=== PATIENT | male | born 1990 | race African-American/Black ===

== ENCOUNTER 2022-01-04 19:01 | Emergency (ER) | payer OTHER ==
[~2022-01-04] VITALS: Ht 152.4 cm; Wt 70.0 kg
[2022-01-04] MEDS ORDERED: LIDOCAINE 1% 10 ML VIAL ID ONE (20:30)
[2022-01-04] MEDS ORDERED: POVIDONE-IODINE 10% 15 ML SOLUTION UD ONE (22:09)
[2022-01-04] MEDS ORDERED: KETOROLAC TROMETHAMINE 30 MG/ML VIAL IM ONE (22:30)
[2022-01-04] MEDS ORDERED: DOXYCYCLINE HYCLATE 100 MG TABLET PO ONE (22:30)
[2022-01-04 22:41] VITALS: BP 126/83
== END 2022-01-04 23:00 ==
LOC: EMS 19:15
DX: L02.31 Cutaneous abscess of buttock (principal); R51.9 Headache, unspecified
CPT/HCPCS: 10060; 96372; 99283; J1885; J3490